=== PATIENT | female | born 1960 ===

== ENCOUNTER 2022-02-09 05:26 | Day surgery (SDC) | payer OTHER ==
[~2022-02-09 05:26] MED LIST: CLONAZEPAM0.5 MG PO; CRESTOR40 MG PO; EFFEXOR XR75 MG PO; SYNTHROID75 MCG PO
== END 2022-02-09 16:40 | disposition home or self-care (01) ==
LOC: CIR.AMB 05:26
PROVIDERS: ATTEND Colon & Rectal Surgery
DX: K64.1 Second degree hemorrhoids (principal); Z20.822 Contact with and (suspected) exposure to COVID-19; E03.9 Hypothyroidism, unspecified